=== PATIENT | female | born 2000 | race African-American/Black ===

== ENCOUNTER 2020-04-06 11:48 | Emergency (ER) | payer OTHER ==
[2020-04-06 12:00] VITALS: PULSE 74; BMI 24.3
[2020-04-06] MEDS ORDERED: ONDANSETRON 4 MG/2 ML VIAL IVPUSH ONE (12:15)
[2020-04-06] MEDS ORDERED: MAG HYDROX/AL HYDROX/SIMETH -MYLANTA- ORAL SUSPENSION PO ONE (12:16)
[2020-04-06] MEDS ORDERED: FAMOTIDINE 20 MG/50 ML IVPB 20 MG/50 ML MG IVPB ONE (12:16)
[2020-04-06] MEDS ORDERED: SODIUM CHLORIDE 0.9% 500 ML INFUS.BAG IV ONE (12:17)
[2020-04-06] MEDS ORDERED: ONDANSETRON 4 MG/2 ML VIAL ONE (12:23)
[2020-04-06 14:58] VITALS: BP 110/56; TEMP 98
== END 2020-04-06 15:02 | disposition home or self-care (01) ==
LOC: JER 11:48
PROC: 3E033NZ Introduction of Analgesics, Hypnotics, Sedatives into Peripheral Vein, Percutaneous Approach (ICD-10-PCS; principal; 2020-04-06)
PROC: 3E033GC Introduction of Other Therapeutic Substance into Peripheral Vein, Percutaneous Approach (ICD-10-PCS; 2020-04-06)
DX: N94.6 Dysmenorrhea, unspecified (principal); R11.2 Nausea with vomiting, unspecified; R19.7 Diarrhea, unspecified
CPT/HCPCS: 36415; 84703; 99285-25

== ENCOUNTER 2024-09-28 18:49 | Emergency (ER) | payer OTHER ==
[2024-09-28 19:22] VITALS: BP 113/68; PULSE 68; RESP 18; TEMP 98.9; BMI 25.0
[2024-09-28] MEDS ORDERED: ACETAMINOPHEN INJECTION 100 ML ONE (20:36)
[2024-09-28 20:52] LABS: ABSOLUTE IMMATURE GRANULOCYTES 0.02 x10^3/uL (0.0-0.031); BASOPHILS # 0.04 x10^3/uL (0.01-0.08); EOSINOPHIL % 0.5 % (0.7-5.8); EOSINOPHILS # 0.05 x10^3/uL (0.04-0.36); HEMATOCRIT 39.6 % (34.1-44.9); HEMOGLOBIN 12.2 g/dL (11.2-15.7); MCHC 30.8 g/dl (32.2-35.5); MEAN CELL VOLUME 64.8 fl (79.4-94.8); MEAN PLT VOLUME 10.5 fl (9.4-12.3); MONOCYTE % 5.5 % (4.7-12.5); PLATELET COUNT 374 x10^3/uL (182-369); RDW 16.3 % (12.1-16.5)
[2024-09-28] MEDS: ACETAMINOPHEN 1000 MG/100 ML BAG IVPB ONE (20:58)
[2024-09-28] MEDS: SODIUM CHLORIDE 0.9% 500 ML INFUS.BAG IV ONE (21:13)
[2024-09-28 21:23] LABS: POTASSIUM 3.8 mmol/L (3.5-5.1)
[2024-09-28 21:27] LABS: ALBUMIN 4.7 g/dl (3.4-5.0); BLOOD UREA NITROGEN 9.5 mg/dL (7-18); CALCIUM 10.1 mg/dL (8.5-10.1)
[2024-09-28 21:31] LABS: CREATININE 0.7 mg/dL (0.55-1.3)
[2024-09-28 21:32] LABS: BILIRUBIN,TOTAL 0.6 mg/dL (0.2-1); TOT PROT 8.1 g/dl (6.4-8.2)
[2024-09-28 22:38] LABS: HCV DIAGNOSTIC IN-HOUSE W/RFLX NON-REACTIVE (NONREACTIVE); HIV INTERPRETATION NEGATIVE (NEGATIVE)
== END 2024-09-28 22:14 | disposition home or self-care (01) ==
LOC: JER 18:49
PROC: 3E033NZ Introduction of Analgesics, Hypnotics, Sedatives into Peripheral Vein, Percutaneous Approach (ICD-10-PCS; principal; 2024-09-28)
DX: R42 Dizziness and giddiness (principal); R51.9 Headache, unspecified; R05.9 Cough, unspecified; R09.89 Other specified symptoms and signs involving the circulatory and respiratory systems; B34.9 Viral infection, unspecified; R00.2 Palpitations
CPT/HCPCS: 0241U-QW; 36415; 80053; 85025; 86803; 86850; 86900; 86901; 87389; 93005; 93010; 99284-25